=== PATIENT | male | born 1945 | race Caucasian/White ===

== ENCOUNTER → 2018-12-15 | Outpatient (CLI) | payer MEDICARE, OTHER ==
[2018-12-15 12:32] LABS: ABSOLUTE MONOCYTES (AUTO) 0.4 10^3/uL (0.1-1.4); ABSOLUTE NEUT (AUTO) 2.6 10^3/uL (1.7-8.2); BASOPHILS % (AUTO) 0.6 % (0-2); EOSINOPHILS % (AUTO) 0.9 % (0-6); HEMOGLOBIN 15.3 g/dL (13.5-17.0); LYMPHOCYTES % (AUTO) 25.4 % (13-45); MEAN CORPUSCULAR HEMOGLOBIN 34.2 pg (27.0-33.4); MEAN CORPUSCULAR HGB CONC 34.7 g/dL (32.0-36.0); MEAN CORPUSCULAR VOLUME 98 fl (80-97); MONOCYTES % (AUTO) 10.2 % (3-13); PLATELET COUNT 187 10^3/uL (150-450); RED BLOOD COUNT 4.47 10^6/uL (4.35-5.55); SEGMENTED NEUTROPHILS % (AUTO) 62.9 % (42-78); TOTAL CELLS COUNTED % (AUTO) 100 %; WHITE BLOOD COUNT 4.1 10^3/uL (4.0-10.5)
[2018-12-15 12:51] LABS: ALANINE AMINOTRANSFERASE 54 U/L (21-72); ALBUMIN 4.8 g/dL (3.5-5.0); ALKALINE PHOSPHATASE 70 U/L (38-126); ANION GAP 9 (5-19); ASPARTATE AMINO TRANSFERASE 41 U/L (17-59); BILIRUBIN,DIRECT 0.1 mg/dL (0.0-0.4); BILIRUBIN,TOTAL 0.7 mg/dL (0.2-1.3); BLOOD UREA NITROGEN 14 mg/dL (7-20); CALCIUM 9.7 mg/dL (8.4-10.2); CARBON DIOXIDE 26 mmol/L (22-30); CHLORIDE 107 mmol/L (98-107); CHOLESTEROL 193.64 mg/dL (0-200); GLUCOSE 88 mg/dL (75-110); POTASSIUM 4.1 mmol/L (3.6-5.0); SODIUM 141.6 mmol/L (137-145); TRIGLYCERIDES 74 mg/dL (<150)
[2018-12-15 13:02] LABS: DIRECT LDL 89 mg/dL (<100)
== END ==
LOC: OD 11:10
PROVIDERS: ATTEND Internal Medicine
DX: I10 Essential (primary) hypertension (principal); R35.1 Nocturia; E78.5 Hyperlipidemia, unspecified; N40.0 Benign prostatic hyperplasia without lower urinary tract symptoms
CPT/HCPCS: 36415; 80053; 80061; 84153; 85025

== ENCOUNTER → 2020-09-10 | Outpatient (CLI) | payer MEDICARE, OTHER ==
--- NOTE | 2020-09-10 19:13 | XCELERA REPORT ---
[address] [address] Transthoracic Echocardiogram Report Name: TATYANA ADLER Age: 75 yrs Gender: Male : 1945 Patient Status: Outpatient Patient Location: Study Date: 09/10/2020 07:55 AM History: Aortic stenosis Height: 72 in Weight: 175 lb BSA: 2.0 m2 Procedure: A complete two-dimensional transthoracic echocardiogram was performed (2D, M-mode, spectral and color flow Doppler). The study was technically difficult with many images being suboptimal in quality. Reason For Study: AORTIC STENOSIS Previous Evaluation: A previous study was performed on 05/18/2014 Miild Aortic stenosis. LVEF normal. History: Mild in 2013. Ordering Physician: WERNER CLANCY Performed By: Key Ray Interpretation Summary Left ventricular systolic function is normal. The Ejection Fraction estimate is 60-65% There is a trace amount of mitral regurgitation There is mild aortic stenosis There is a mild amount of tricuspid regurgitation There is mild to moderate pulmonary hypertension by echo There is no pericardial effusion. MMode/2D Measurements & Calculations RVDd: 2.2 cm LVIDd: 4.3 cm FS: 35.0 % Ao root diam: 2.8 cm IVSd: 1.4 cm LVIDs: 2.8 cm EDV(Teich): 82.2 ml Ao root area: LVPWd: 1.1 cm ESV(Teich): 29.2 ml 6.2 cm2 EF(Teich): 64.5 % LVOT diam: 2.0 cm EDV(MOD-sp4): SV(MOD-sp4): LVOT area: 83.2 ml 56.9 ml ESV(MOD-sp4): 3.0 cm2 26.3 ml EF(MOD-sp4): 68.4 % Doppler Measurements & Calculations MV E max kasandra: MV dec slope: Ao V2 max: LV V1 max P.0 cm/sec 245.6 cm/sec 7.7 mmHg MV A max kasandra: 608.0 cm/sec2 Ao max PG: LV V1 mean P.7 cm/sec MV dec time: 24.1 mmHg 4.2 mmHg 0.18 sec MV E/A: 0.87 Ao V2 mean: LV V1 max: 189.6 cm/sec 138.3 cm/sec Ao mean PG: LV V1 mean: 15.6 mmHg 98.3 cm/sec Ao V2 VTI: 56.3 cm LV V1 VTI: 30.3 cm ROSANNA(I,D): 1.6 cm2 ROSANNA(V,D): 1.7 cm2 SV(LVOT): 91.6 ml PA V2 max: TR max kasandra: 145.6 cm/sec 327.2 cm/sec PA max P.5 mmHg TR max P.8 mmHg Left Ventricle The left ventricle is normal in size. There is moderate concentric left ventricular hypertrophy. Left ventricular systolic function is normal. The Ejection Fraction estimate is 60-65%. Doppler measurements suggest impaired left ventricular relaxation, which is associated with grade I/IV or mild diastolic dysfunction. Regional wall motion abnormalities cannot be excluded due to limited visualization. Right Ventricle The right ventricle is normal in size and function. Atria The right atrium is normal. The left atrial size is normal. The interatrial septum is intact with no evidence for an atrial septal defect. There is no Doppler evidence for an interatrial shunt. Mitral Valve Calcified mitral apparatus. There is mild mitral annular calcification. There is no mitral valve stenosis. There is a trace amount of mitral regurgitation. Aortic Valve The aortic valve is sclerotic and shows some degree of functional abnormality. The aortic valve is trileaflet. Aov Vmax=2.46 m/s Mean PG=16 mm Hg Aov (VTI)- 1.6 cm 2. There is mild aortic stenosis. No aortic regurgitation is present. Tricuspid Valve The tricuspid valve is normal in structure and function. There is a mild amount of tricuspid regurgitation. Best estimated right ventricular systolic pressure is elevated at 40-50mmHg. There is mild to moderate pulmonary hypertension by echo. Pulmonic Valve The pulmonic valve is not well visualized. There is no pulmonic valvular stenosis. There is no pulmonic valvular regurgitation. Great Vessels The aortic root is normal size. Effusions There is no pericardial effusion. : WERNER CLANCY Anil
== END ==
LOC: SP 08:38
PROVIDERS: ATTEND Internal Medicine
DX: I35.0 Nonrheumatic aortic (valve) stenosis (principal)
CPT/HCPCS: 93306

== ENCOUNTER → 2020-09-10 | Outpatient (CLI) | payer MEDICARE ==
[2020-09-10 11:21] LABS: ABSOLUTE MONOCYTES (AUTO) 0.5 10^3/uL (0.1-1.4); ABSOLUTE NEUT (AUTO) 3.3 10^3/uL (1.7-8.2); BASOPHILS % (AUTO) 0.8 % (0-2); EOSINOPHILS % (AUTO) 0.8 % (0-6); HEMATOCRIT 45.1 % (37.9-51.0); HEMOGLOBIN 15.5 g/dL (13.5-17.0); LYMPHOCYTES % (AUTO) 20.8 % (13-45); MEAN CORPUSCULAR HEMOGLOBIN 33.7 pg (27.0-33.4); MEAN CORPUSCULAR HGB CONC 34.4 g/dL (32.0-36.0); MEAN CORPUSCULAR VOLUME 98 fl (80-97); MONOCYTES % (AUTO) 9.6 % (3-13); PLATELET COUNT 207 10^3/uL (150-450); RED CELL DISTRIBUTION WIDTH 13.6 % (11.5-14.0); TOTAL CELLS COUNTED % (AUTO) 100 %; WHITE BLOOD COUNT 4.9 10^3/uL (4.0-10.5)
[2020-09-10 11:57] LABS: ALKALINE PHOSPHATASE 71 U/L (38-126); ANION GAP 12 (5-19); ASPARTATE AMINO TRANSFERASE 40 U/L (17-59); BILIRUBIN,DIRECT 0.3 mg/dL (0.0-0.4); BLOOD UREA NITROGEN 17 mg/dL (7-20); CALCIUM 10.2 mg/dL (8.4-10.2); CARBON DIOXIDE 25 mmol/L (22-30); CHLORIDE 103 mmol/L (98-107); CHOLESTEROL 211.16 mg/dL (0-200); GLUCOSE 96 mg/dL (75-110); POTASSIUM 4.7 mmol/L (3.6-5.0); TOTAL PROTEIN 7.7 g/dL (6.3-8.2); TRIGLYCERIDES 60 mg/dL (<150)
[2020-09-10 12:08] LABS: DIRECT LDL 106 mg/dL (<100)
== END ==
LOC: OD 09:43
PROVIDERS: ATTEND Internal Medicine
DX: I10 Essential (primary) hypertension (principal); E78.5 Hyperlipidemia, unspecified; R53.83 Other fatigue; R35.1 Nocturia
CPT/HCPCS: 36415; 80053; 80061; 84153; 84443; 85025